=== PATIENT | male | born 1965 | race Caucasian/White ===

== ENCOUNTER 2021-03-21 11:00 | Emergency (ER) | payer OTHER ==
[~2021-03-21] VITALS: Ht 180.3 cm; Wt 107.0 kg
[2021-03-21] MEDS ORDERED: TENORMIN50 M1 PO (11:14)
[2021-03-21] MEDS ORDERED: WELLBUTRIN XL300 MG PO (11:15)
[2021-03-21] MEDS ORDERED: ATIVAN0.5 M1 PO (11:15)
[2021-03-21] MEDS ORDERED: RESTORIL30 M1 PO (11:15)
[2021-03-21] MEDS ORDERED: AMBIEN5 MG PO (11:16)
== END 2021-03-21 14:23 | disposition home or self-care (01) ==
LOC: ER 11:00
DX: B34.9 Viral infection, unspecified (principal); Z20.822 Contact with and (suspected) exposure to COVID-19

== ENCOUNTER 2021-04-05 21:39 | Inpatient (IN) | payer OTHER ==
[~2021-04-05] VITALS: Ht 30.5 cm; Wt 5.0 kg
[~2021-04-05 21:39] MED LIST: AMBIEN5 MG PO; ATIVAN0.5 M1 PO; RESTORIL30 M1 PO; TENORMIN50 M1 PO; WELLBUTRIN XL300 MG PO
== END 2021-04-08 15:08 | disposition home or self-care (01) | DRG 311 ==
LOC: ER 21:39 → MEDI 04-06 10:31
PROVIDERS: ADMIT Internal Medicine; ATTEND Internal Medicine
PROC: B24BZZZ Ultrasonography of Heart with Aorta (ICD-10-PCS; principal; 2021-04-07)
DX: I24.9 Acute ischemic heart disease, unspecified (principal); I16.0 Hypertensive urgency; R07.2 Precordial pain; I11.0 Hypertensive heart disease with heart failure; I50.9 Heart failure, unspecified; Z20.822 Contact with and (suspected) exposure to COVID-19

== ENCOUNTER 2021-08-06 03:06 | Emergency (ER) | payer OTHER ==
[~2021-08-06] VITALS: Ht 180.3 cm; Wt 106.6 kg
[2021-08-06] MEDS ORDERED: HYDROCHLOROTH12.5 MG PO (03:17)
[2021-08-06] MEDS ORDERED: AMLODIPINE BESY10 MG PO (03:17)
[2021-08-06] MEDS ORDERED: METOPROLOL SUCC25 MG PO (03:18)
[2021-08-06] MEDS ORDERED: ATORVASTATIN CA20 MG (03:18)
[2021-08-06] MEDS ORDERED: KETO10TA2 PO (05:29)
[2021-08-06] MEDS ORDERED: NORFLEX100MG PO (05:29)
== END 2021-08-06 05:38 | disposition home or self-care (01) ==
LOC: ER 03:06
DX: S29.011A Strain of muscle and tendon of front wall of thorax, initial encounter (principal); X58.XXXA Exposure to other specified factors, initial encounter; Y93.89 Activity, other specified; Y92.89 Other specified places as the place of occurrence of the external cause; R07.89 Other chest pain

== ENCOUNTER 2021-08-10 01:40 | Emergency (ER) | payer OTHER ==
[~2021-08-10] VITALS: Ht 180.3 cm; Wt 108.9 kg
[~2021-08-10 01:40] MED LIST changes: +AMLODIPINE BESY10 MG PO; +ATORVASTATIN CA20 MG; +HYDROCHLOROTH12.5 MG PO; +KETO10TA2 PO; +METOPROLOL SUCC25 MG PO; +NORFLEX100MG PO
[2021-08-10] MEDS ORDERED: DICLOFENAC SOD100 MG PO (04:07)
== END 2021-08-10 04:41 ==
LOC: ER 01:40
DX: M54.9 Dorsalgia, unspecified (principal); R07.89 Other chest pain

== ENCOUNTER 2022-05-09 12:18 | Emergency (ER) | payer OTHER ==
[~2022-05-09] VITALS: Ht 180.3 cm; Wt 108.9 kg
[~2022-05-09 12:18] MED LIST changes: +DICLOFENAC SOD100 MG PO
== END 2022-05-09 20:20 | disposition home or self-care (01) ==
LOC: ER 12:18
DX: R60.0 Localized edema (principal); I10 Essential (primary) hypertension

== ENCOUNTER 2024-03-19 10:26 | Emergency (ER) | payer OTHER ==
[~2024-03-19] VITALS: Ht 180.3 cm; Wt 102.1 kg
[2024-03-19] MEDS ORDERED: LASIX20 MG PO (10:40)
[2024-03-19] MEDS ORDERED: COZAAR25 MG PO (10:40)
[2024-03-19 10:41] VITALS: BP 130/82; O2SAT 98
[2024-03-19] MEDS ORDERED: DICLOFENAC SODI75 MG PO (10:59)
[2024-03-19] MEDS ORDERED: NORFLEX100MG PO (10:59)
[2024-03-19] MEDS ORDERED: TRIAMCINOLONE ACETONIDE 40 MG/ML VIAL IM ONE (11:00)
[2024-03-19] MEDS ORDERED: KETOROLAC TROMETHAMINE 60 MG VIAL IM ONE ×2 (11:00→11:01)
[2024-03-19] MEDS ORDERED: TRIAMCINOLONE ACETONIDE 40 MG/ML VIAL ONE (11:01)
== END 2024-03-19 11:09 | disposition home or self-care (01) ==
LOC: ER 10:26
DX: M54.50 Low back pain, unspecified (principal); I10 Essential (primary) hypertension

== ENCOUNTER 2025-02-04 01:32 | Emergency (ER) | payer OTHER ==
[~2025-02-04] VITALS: Ht 180.3 cm; Wt 104.3 kg
[~2025-02-04 01:32] MED LIST changes: +COZAAR25 MG PO; +DICLOFENAC SODI75 MG PO; +LASIX20 MG PO
[2025-02-04] MEDS ORDERED: KETOROLAC TROMETHAMINE 60 MG VIAL IM STA (02:40)
[2025-02-04] MEDS ORDERED: ORPHENADRINE CITRATE 30 MG/ML AMPUL IM STA (02:41)
[2025-02-04] MEDS ORDERED: ORPHENADRINE CITRATE 30 MG/ML AMPUL ONE (02:48)
[2025-02-04] MEDS ORDERED: KETOROLAC TROMETHAMINE 60 MG VIAL IM ONE (02:48)
[2025-02-04 03:22] LABS: URINE APPEARANCE Clear; URINE BILIRRUBIN Negative (NEGATIVE); URINE BLOOD Negative; URINE COLOR Yellow; URINE GLUCOSE Negative (NEGATIVE); URINE KETONE Negative (NEGATIVE); URINE LEUKOCYTE Small; URINE NITRATE Negative; URINE PROTEIN Negative (NEGATIVE); URINE UROBILINOGEN 0.2 E.U./dl
[2025-02-04 03:23] LABS: BASO % 0.7 % (0.1-1.2); EOS # 0.09 (0.04-0.54); EOS % 2.0 % (0.7-7.0); LYMPH # 1.49 (1.18-3.74); LYMPH % 33.4 % (19.3-53.1); MEAN PLATELET VOLUME 9.00 fl (9.4-12.4); MONO # 0.52 (0.24-0.82); MONO % 11.7 % (4.7-12.5); NEUT # 2.31 (1.56-6.13); NEUT % 51.8 % (34.0-71.1); RED CELL DISTRIBUTION WIDTH 12.7 % (11.6-14.4)
[2025-02-04 03:25] LABS: URINE BACTERIA 67.1 uL (0.0-1933); URINE CAST 0.00 uL (0.0-1.40); URINE EPITHELIAL CELLS 4.9 uL (0.0-38.8); URINE RBC 0.1 uL (0.0-20.8); URINE WBC 67.6 uL (0.0-23.2)
[2025-02-04 03:42] LABS: EOSINOPHIL MAN 1.0 %; LYMPHOCYTE MAN 31.0 %; MONOCYTE MAN 2.0 %; NEUTROPHILS MAN 58.0 %
[2025-02-04 03:44] LABS: COVID-19 AG NEGATIVE (NEGATIVE)
[2025-02-04 04:07] LABS: ALT/SGPT 41.0 U/L (12-78); AST/SGOT 24.0 U/L (15-37); BILIRUBIN TOTAL 0.25 mg/dL (0.3-1.2); BUN CREA RATIO 17.0 (7.0-25.0); CREATININE SERUM 1.0 mg/dL (0.70-1.30); GFR 76.48; GLOBULINA 3.5 G/DL (2.4-3.5); GLUCOSE FASTING 125.0 mg/dL (65-100); OSMOLALITY SERUM 290.0 MOSM/KG (275-295)
[2025-02-04] MEDS ORDERED: NORFLEX100MG PO (05:40)
[2025-02-04] MEDS ORDERED: KETO10TA2 PO (05:40)
== END 2025-02-04 05:48 ==
LOC: ER 01:32
PROVIDERS: General Practice
DX: M62.830 Muscle spasm of back (principal); M54.9 Dorsalgia, unspecified; I10 Essential (primary) hypertension; R07.9 Chest pain, unspecified; Z20.822 Contact with and (suspected) exposure to COVID-19